=== PATIENT | male | born 1975 | race Caucasian/White ===

== ENCOUNTER → 2017-06-10 | Outpatient (CLI) | payer BC ==
--- NOTE | 2017-06-11 10:08 | DIAGNOSTIC IMAGING REPORT ---
MRI OF THE LEFT KNEE WITHOUT CONTRAST CLINICAL HISTORY: Left knee pain. Evaluate for meniscal tear. COMPARISON STUDY: None. TECHNIQUE: Utilizing a 1.5 Nelly magnet and dedicated coil, multiplanar, multiecho imaging of the left knee was performed without intravenous or intraarticular contrast. FINDINGS: Alignment of the left knee is anatomic. There is no marrow edema or marrow replacement. Extensor mechanism is intact. No joint effusion is present. The cruciate and collateral ligaments are intact. No meniscal tear is identified. There is mild to moderate chondrosis within the medial compartment. There is no significant chondrosis within the lateral and patellofemoral compartments. Note is made of a multiloculated cystic abnormality located along the lateral metadiaphysis of the left femur that measures 2.3 x 2.3 x 0.9 cm. IMPRESSION: 1. No meniscal tear. 2. Intact cruciate and collateral ligaments. 3. 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 4. 2.3 x 2.3 x 0.9 cm multiloculated cystic focus along the lateral metadiaphysis of the left femur. While nonspecific, this favors a ganglion. Electronically signed by: Vincent Pierce M.D. 06/11/2017 10:07 AM Dictated Date/Time: 06/10/2017 3:22 PM
== END | disposition home or self-care (01) ==
LOC: C.MRIBC 14:36
PROVIDERS: ATTEND Orthopaedic Surgery
DX: M25.562 Pain in left knee (principal); M85.662 Other cyst of bone, left lower leg